=== PATIENT | female | born 1955 | race Caucasian/White ===

== ENCOUNTER 2023-06-28 17:45 | Emergency (ER) | payer OTHER, MEDICARE, SELFPAY ==
--- NOTE | ~2023-06-28 | CT_ITS ---
EXAMINATION: CT SOFT TISSUE NECK WITH CONTRAST CLINICAL INFORMATION: Pain. Difficulty swallowing. COMPARISON: X-rays dated 06/28/2023 TECHNIQUE: Following the intravenous administration of 60 mL of Omnipaque 350 intravenous contrast, helical imaging was performed in the axial plane with generation of coronal and sagittal reformatted images. This CT examination was performed using dose optimization techniques as appropriate, variously including the following: *Automated exposure control *Adjustment of mA and/or kV according to patient size (this includes techniques or standardized protocols for targeted exams where dose is matched to indication/reason for exam; i.e. extremities or head) *Use of iterative reconstruction technique DLP: 425 mGy-cm FINDINGS: There is mild edema in the bilateral aryepiglottic folds, particularly posteriorly. Larynx otherwise unremarkable. No cervical adenopathy is identified. The parotid glands are homogeneous in attenuation. The submandibular glands are normal. No contour abnormality or pathologic enhancement is seen within the oral cavity or pharyngeal mucosal space. The parapharyngeal fat is preserved. No extra mucosal soft tissue mass or fluid collection is seen. No retropharyngeal fluid collection is seen. The mastoid air cells and visualized portions of the paranasal sinuses are well-aerated. Unremarkable thyroid gland. Bilateral coarse carotid bulb calcifications with approximately 50% stenosis of the proximal right internal carotid artery. No hemodynamically significance stenosis on the left.. The imaged portions of the brain parenchyma are unremarkable. Small right mastoid air cell effusion. Left mastoid air cells and imaged portions of the paranasal sinuses are clear. There are nonspecific soft tissue calcifications anterior to the bilateral maxilla, likely calcified cosmetic fillers. The temporomandibular joints are normal. No periapical disease is identified. No acute or suspicious osseous abnormalities. Imaged lung apices demonstrate mild emphysema and bronchial wall thickening. Superior mediastinum unremarkable. No acute pneumonic process or suspicious pulmonary nodules. CT/CT soft tissue neck w IV con IMPRESSION: * There is mild edema in the bilateral aryepiglottic folds, compatible with laryngitis. No foreign bodies. * Incidental 50% stenosis of the proximal right internal carotid artery. * Mild emphysema and small airways disease. * Nonspecific soft tissue calcifications anterior to the bilateral maxilla, likely calcified cosmetic fillers.
--- NOTE | ~2023-06-28 | XR_ITS ---
EXAMINATION: XR SOFT TISSUE NECK CLINICAL INDICATION: Something stuck in the throat COMPARISON: None available. TECHNIQUE: 2 views of the soft tissue neck were obtained. FINDINGS: Prominent prevertebral soft tissue swelling is present anterior to C4-C6. Calcifications are present in this region that are probably related to the trachea. Degenerative changes are present in the cervical spine from C4 through C7 with disc space narrowing and osteophytes. XR/XR soft tissue neck IMPRESSION: Prominent prevertebral soft tissue swelling. CT scan of the neck with contrast is recommended for further evaluation if there is suspicion of a foreign body in the throat.
[2023-06-28 17:57] VITALS: BP 145/76; PULSE 98; RESP 20; TEMP 36.3; O2SAT 95; BMI 26.1
--- NOTE | 2023-06-28 18:00 | ED.GENADULT ---
HPI - General Adult General Chief complaint: Skin/Abscess/Foreign Body Stated complaint: foreign body in throat Time Seen by Provider: 06/28/23 23:05 Source: patient Mode of arrival: ambulatory Limitations: no limitations History of Present Illness HPI narrative: 67 yo female with PMH of HLD was eating [place] fries and roast beef sandwhich from [employer] around 430pm today when she felt pain and like something that got stuck. she has never had issues swallowing before. She notes it hurts and she is having a hard time swallowing her saliva. She has no change in voice or difficulty breathing. She tried to make herself vomit and did but it did not help MD complaint: throat pain Onset (ago): hour(s) (430pm today) Location: mouth Radiation: non-radiation Severity: moderate Quality: aching Pain Consistency: intermittent Relieving factors: none Exacerbating factors: other (swallowing) Associated symptoms: denies other symptoms Treatments prior to arrival: none Related Data Previous Rx's Medication Instructions Recorded azithromycin 250 mg tablet See Rx Instructions PO .COMPLEX #6 06/29/23 tabs prednisone 20 mg tablet 40 mg (2 x 20 mg) PO DAILY 5 days 06/29/23 #10 tabs Allergies Allergy/AdvReac Type Severity Reaction Status Date / Time No Known Allergies Allergy Verified 06/28/23 18:02 Review of Systems Review of Systems: Constitutional : No Fever, No Chills ENT/Mouth : pos swallowing difficulty, pos sore throat Eyes: No Eye Pain, No Swelling Cardiovascular : No Chest Pain, No SOB Respiratory : No Cough, No Sputum Gastrointestinal : No Nausea, No Vomiting, No Diarrhea Genitourinary : No Dysuria Musculoskeletal : No Myalgias Skin : No rash Neuro : No Weakness, No Numbness, No Headache All other systems reviewed and are negative [facility] Past Medical History Attestation statement: The following information was validated with the patient. Medical History (Updated 06/29/23 @ 01:54 by Desi Oquendo DO) Hyperlipidemia Social History Social History (Updated 06/28/23 @ 23:32 by Desi Oquendo DO) Patient Tobacco Use Status: Never used Tobacco Advance Directives: No Advance Directives Information Provided: No Physical Exam ED Vital Signs: Vital Signs - 24 hr 06/28/23 17:57 06/29/23 00:00 Temperature 97.4 F 97.8 F Pulse Rate 98 75 Respiratory Rate 20 16 Blood Pressure 145/76 H 101/58 L Pulse Oximetry 95 97 Oxygen Delivery Method Room Air Room Air BMI result Body Mass Index 26.1 Appearance: Alert. Oriented X3. No acute distress. Eyes: Pupils equal, round and reactive to light. ENT: Pharynx normal. Neck: Normal inspection. Neck supple. nprmal ROM CVS: Normal heart rate and rhythm. Pulses normal. Respiratory: No respiratory distress. Breath sounds normal. Abdomen: Soft and nontender. Skin: Skin warm and dry. Normal skin color. Normal skin turgor. Extremities: No lower extremity edema. Neuro: Oriented X 3. No motor deficit. No sensory deficit. Course Course Course Narrative: This is an RME: Additional HPI, ROS, PE not included below will be deferred to primary provider. This is a [id number]-female, with no known medical problems, presenting to the ER with complaints of ?foreign body in throat. patient states that she was eating Citizen Of [place] fries+ and roast beef and felt as though 1 of these was stuck. She is able to drink landen lucio without any difficulty. Plan: further ER evaluation needed Medications Administered Discontinued Medications Generic Name Dose Route Start Last Admin Trade Name Freq PRN Reason Stop Dose Admin Iohexol 60 ml 06/29/23 01:02 06/29/23 01:02 Iohexol 350 Mg/Ml 100 Ml Infus..Btl IV 06/29/23 01:03 60 ml ONCE ONE Administration Methylprednisolone Sodium Succinate 60 mg 06/29/23 01:58 06/29/23 02:03 Methylprednisolone Sod Succ 125 Mg/2 Ml Vial IVPUSH 06/29/23 01:59 60 mg ONCE ONE Administration Medical Decision Making Medical Decision Making [facility] Narrative: 67 yo female with PMH of HLD here with abrupt onset of throat pain and difficulty swallowing after eating at [employer] today. No issues with this in the past. She notes symptoms still persist 7 hours later. Her xray from triage is abnormal - she denies smoking, preceding infectious symptoms. Will obtain labs and CT scan for mass/FB. Differential Diagnosis Differential Diagnoses: The differential diagnosis associated with the presentation includes mass/FB. Admission/Observation Consideration of admission/observation: Escalation of care including admission/observation considered not toxic, stable for DC Lab Data [facility] Lab Attestation statement: I reviewed the patient's lab results. 06/28/23 23:26 06/28/23 23:26 Labs: Lab Results 06/28/23 Range/Units 23:26 WBC 7.9 (4.8-10.8) X10*3/uL RBC 4.18 L (4.20-5.50) X10*6/uL Hgb 12.9 (12.0-16.0) g/dl Hct 38.7 (37.0-47.0) % MCV 92.6 (80.0-98.0) fL MCH 30.9 (27.0-33.0) pg MCHC 33.3 (31.0-35.0) g/dl RDW 12.5 (11.0-16.0) % Plt Count 316 (160-400) X10*3/uL MPV 9.4 (9.4-12.3) fL Immature Gran % (Auto) 0.3 (0.0-0.4) % Neut % (Auto) 55.0 (45-73) % Lymph % (Auto) 29.7 (20-40) % [place] % (Auto) 11.0 (2-11) % Eos % (Auto) 3.5 (0-4) % Baso % (Auto) 0.5 (0-2) % Lymph # (Auto) 2.3 (1.2-4.9) X10*3/uL [place] # (Auto) 0.9 (0.1-1.2) X10*3/uL Eos # (Auto) 0.3 (0.0-0.4) X10*3/uL Baso # (Auto) 0.0 (0.0-0.2) X10*3/uL Abs Immat Gran (auto) 0.02 (0.00-0.03) X10*3/uL Absolute Neuts (auto) 4.3 (2.0-8.3) x10*3/uL Absolute Nucleated RBC 0.000 (0.0-0.012) X10*3/uL Nucleated RBC % (auto) 0.0 (0.0-0.2) /100WBC PT 10.9 L (11.1-13.3) SEC INR 0.9 (0.9-1.1) Sodium 139 (135-145) mmol/L Potassium 3.6 (3.3-5.1) mmol/L Chloride 103 (96-108) mmol/L Carbon Dioxide 27 (22-29) mmol/L Anion Gap 13 (12-20) BUN 18 H (9-16) mg/dL Creatinine 0.96 (0.5-1.4) mg/dL Estim Creat Clear Calc 54.9 Estimated GFR 58 Random Glucose 96 (60-115) mg/dL Calcium 9.4 (8.4-10.2) mg/dL Independent Interpretation I performed an independent interpretation of an: CT Scan (laryngitis no FB) Radiology Impression Discussion of test interpretation with radiology: I have reviewed the radiologist's reading. Prescription Management I considered prescription management with: Antibiotic and Other Discharge Plan Discharge Clinical Impression: Laryngitis Patient Disposition: Home, Self-Care Instructions: Laryngitis (ED) Additional Instructions: return for worsening pain, swelling or any other concerns. CT scan show no FB CT/CT soft tissue neck w IV con IMPRESSION: * There is mild edema in the bilateral aryepiglottic folds, compatible with laryngitis. No foreign bodies. * Incidental 50% stenosis of the proximal right internal carotid artery. * Mild emphysema and small airways disease. * Nonspecific soft tissue calcifications anterior to the bilateral maxilla, likely calcified cosmetic fillers. Prescriptions: New azithromycin 250 mg tablet See Rx Instructions .ROUTE .COMPLEX Qty: 6 0RF Rx Instructions: For 250 mg dose pack: take 500 mg today (day 1), then 250 mg for 4 days (days 2-5) prednisone 20 mg tablet 40 mg PO DAILY 5 Days Qty: 10 0RF Referrals: Jose Alfredo Kiser MD [Physician] - (call to schedule appointment given carotid stenosis) Stand Alone Forms: Work/School Release Interventions: ED Discharge Assessment Last Done: 06/29/23 02:06 Discharge Date/Time: 06/29/23 02:12
[2023-06-28 23:31] LABS: Basophils Percent Auto 0.5 % (0-2); Eosinophils Absolute Auto 0.3 X10*3/uL (0.0-0.4); Eosinophils Percent Auto 3.5 % (0-4); Hematocrit 38.7 % (37.0-47.0); Hemoglobin 12.9 g/dl (12.0-16.0); Imm Gran Abs Auto 0.02 X10*3/uL (0.00-0.03); Imm Gran Pct Auto 0.3 % (0.0-0.4); Lymphocytes Absolute Auto 2.3 X10*3/uL (1.2-4.9); Lymphocytes Percent Auto 29.7 % (20-40); MANUAL DIFF FLAG NO; Mean Corpuscular HGB Conc 33.3 g/dl (31.0-35.0); Mean Corpuscular Hemoglobin 30.9 pg (27.0-33.0); Mean Corpuscular Volume 92.6 fL (80.0-98.0); Mean Platelet Volume 9.4 fL (9.4-12.3); Monocytes Absolute Auto 0.9 X10*3/uL (0.1-1.2); Neutrophils Absolute Auto 4.3 x10*3/uL (2.0-8.3); Platelet Count 316 X10*3/uL (160-400); Red Blood Count 4.18 X10*6/uL (4.20-5.50); Red Cell Distribution Width 12.5 % (11.0-16.0); White Blood Count 7.9 X10*3/uL (4.8-10.8)
[2023-06-28 23:36] LABS: INTERNATIONAL NORM RATIO 0.9 (0.9-1.1); Prothrombin Time 10.9 SEC (11.1-13.3)
[2023-06-28 23:43] LABS: Anion Gap 13 (12-20); Blood Urea Nitrogen 18 mg/dL (9-16); Calcium 9.4 mg/dL (8.4-10.2); Carbon Dioxide 27 mmol/L (22-29); Chloride 103 mmol/L (96-108); Creatinine Clr Calc Pharmacy 54.9; Estimated Glomerular Filt Rate 58; Glucose Random 96 mg/dL (60-115); Potassium 3.6 mmol/L (3.3-5.1); Sodium 139 mmol/L (135-145)
[2023-06-29] VITALS: BP 101/58; PULSE 75; RESP 16; TEMP 36.6; O2SAT 97
[2023-06-29] MEDS: iohexoL 350 MG/ML 100 ML INFUS..BTL 60 ML IV (01:02)
[2023-06-29] MEDS: methylPREDNISolone Sod Succ 125 MG/2 ML VIAL 60 MG IVPUSH (02:03)
== END 2023-06-29 02:12 | disposition home or self-care (01) ==
PROVIDERS: Emergency Provider Emergency Medicine
DX: J04.0 Acute laryngitis (principal); M54.2 Cervicalgia; R13.10 Dysphagia, unspecified; Z79.899 Other long term (current) drug therapy
CPT/HCPCS: 36415; 70360; 70491; 80048; 85025; 85610; 96374; 99284; J2930; Q9967

== ENCOUNTER 2023-09-07 08:04 | Outpatient (AMB) | payer MEDICARE, SELFPAY ==
--- NOTE | 2023-09-07 08:10 | MHC.OFFWIV ---
Intake Vital Signs 09/07/23 08:11 Height 5 ft 4 in Weight 152 lb BMI 26.1 BP 120/60 Blood Pressure Location Rt brachial Position Sitting Pulse 78 Pulse Source Pulse Oximeter Temp 98.7 F Temp Source Oral Pulse Oximetry (%) 97 Oxygen Delivery Method Room Air Intake Visit Reasons: EP sore throat hoarse masked in lobby Intake Note: pt is here for sore throat, fever sick fr 4 days Patient Tobacco Use Status: Never used Tobacco Allergies No Known Allergies Allergy (Verified 09/07/23 08:11) Do you need a note to return to daycare/school/sports/work: No HPI HPI Comments History of Present Illness Details This is a female with a past medical history of hypertension, hyperlipidemia and depression presenting for evaluation of cold symptoms that she has had for the past 1 week. Patient reports a cough, sore throat and a hoarseness to her voice. Patient states that her has been sick with similar symptoms. Patient denies having any fevers, chills, ear pain, chest pain or shortness a breath. [facility] Medical History Hyperlipidemia Social History Patient Tobacco Use Status: Never used Tobacco Review of Systems Const All systems reviewed & are unremarkable except as noted in HPI and below Reports as per HPI ENT Reports no additional complaints Card Reports no additional complaints and Denies dyspnea Resp Reports cough, Denies pain with cough, Denies dyspnea and Denies wheezing Musc Reports no additional complaints Psych Reports no additional complaints Aller/Immun Denies wheezing Physical Exam Vital Signs: Last Vital Signs Temp 98.7 F 09/07/23 08:11 Pulse 78 09/07/23 08:11 BP 120/60 09/07/23 08:11 Pulse Ox 97 09/07/23 08:11 Oxygen Delivery Method Room Air 09/07/23 08:11 BMI result Body Mass Index 26.1 Const General: cooperative, comfortable and no acute distress; No ill appearing Orientation/consciousness: patient oriented x3 Limitations: no limitations HEENT Head: Yes normal to inspection and Yes normocephalic Ears: hearing grossly normal bilaterally, external ears normal, TM's normal bilaterally and EAC's normal General nose exam: Normal external nose present and no nasal discharge noted Face and sinus: Yes normal facial exam and Yes sinuses nontender Mouth: Normal oral and palatal mucosa present and moist mucous membranes Throat: Yes posterior oropharynx normal (There is no edema, erythema or exudates in the posterior oropharynx) and Yes postnasal drainage Eyes General: appearance normal, both eyes and all related structures Neck Lymphatic: no lymphadenopathy noted Resp Effort & Inspection: normal respiratory effort, able to speak in complete sentences, no audible wheezes, no cough, no respiratory distress and no use of accessory muscles Auscultation: clear to auscultation bilaterally Cardio Rate: regular rate Rhythm: regular rhythm Neuro General: patient oriented x3 Psych Appearance: grossly normal Mental Status: mental status grossly normal Speech and movement: Normal speech and movement present Insight: Good insight present (Psych) Judgement: Good judgement present (Psych) Assessment & Plan Assessment & Plan (1) Upper respiratory infection: Comment: Patient's history coupled with her examination is consistent with a viral upper respiratory infection. No further testing or imaging is warranted at this time. Code(s): J06.9 - Acute upper respiratory infection, unspecified Plan: Mucinex OTC as needed, increase clear fluids daily and follow up with PCP in 7-10 days if symptoms persist. Coding Level of Care Code Est Pt Level 3 (94623) Diagnoses Upper respiratory infection J06.9 Time Spent (min) 20
[2023-09-07 08:11] VITALS: BP 120/60; PULSE 78; TEMP 37.1; O2SAT 97; BMI 26.1
== END 2023-09-07 09:12 | disposition home or self-care (01) ==
PROVIDERS: Visit Provider Physician Assistant
DX: J06.9 Acute upper respiratory infection, unspecified (principal); J02.9 Acute pharyngitis, unspecified
CPT/HCPCS: 87880; 99213

== ENCOUNTER 2025-04-07 10:22 | Outpatient (REF) | payer MEDICARE, OTHER, SELFPAY ==
--- NOTE | ~2025-04-07 | XR_ITS ---
CLINICAL HISTORY: R07.81 - Pleurodynia PA chest and two views of the left ribs. Comparison: None provided Findings: There are left 6th 7th and 8th rib fractures present. No definite pneumothorax. Mild interstitial prominence. Cardiac and mediastinal contours are within normal limits. Impression: Left 6th through 8th rib fractures. No definite pneumothorax. This document has been electronically signed by: Unruly Sheikh MD on 04/07/2025 11:16:20
== END 2025-04-07 10:23 | disposition home or self-care (01) ==
LOC: HO.HMGCX 10:22
PROVIDERS: PCP Internal Medicine; Visit Provider Physician Assistant
DX: R07.81 Pleurodynia (principal); S22.49XA Multiple fractures of ribs, unspecified side, initial encounter for closed fracture; W19.XXXA Unspecified fall, initial encounter
CPT/HCPCS: 71111; 99212

== ENCOUNTER 2025-04-07 10:22 | Outpatient (AMB) | payer MEDICARE, OTHER, SELFPAY ==
--- OUTSIDE RECORDS SUMMARY | 2025-04-07 10:25 | XMS_ITS | Clinical Summary ---
Author Organization [facility] Address [address] [place] [address] Care Team Providers Care Electrician Technician Name Role Phone Unavailable Primary Care Provider Unavailabl e Allergies No known active allergies Medications amLODIPine-cleopatra zepril (LOTREL 5-10) 5-10 MG per capsule Take 1 capsule by mouth daily. 0 01/27/2016 Active FLUoxetine (PROzac) 20 MG tablet Take 40 mg by mouth daily. 5 01/09/2016 Active pravastatin (PRAVACHOL) 80 MG tablet Take 80 mg by mouth daily. 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 Immunizations Immunization Administration Dates Next Due Hep B, Adolescent or Pediatric 11/14/2009 Hepatitis B 04/16/2010,10/16/2009 TD Preservative Free 08/01/2008 Social History Tobacco Use Types Packs/Day Years Used Date Smoking Tobacco: Never Assessed Comments Unknown Sex and Gender Information Value Date Recorded Sex Assigned at Not on file Legal Sex Female 6:41 PM EDT Gender Identity Not on file Sexual Orientation Not on file Last Filed Vital Signs Vital Sign Reading Time Taken Comments Blood Pressure 128/84 02/14/2016 8:16 AM EDT Pulse 72 02/14/2016 8:16 AM EDT Temperature - - Respiratory Rate 16 02/14/2016 8:16 AM EDT Oxygen Saturation - - Inhaled Oxygen Concentration - - Weight 71.2 kg (157 lb) 02/14/2016 8:16 AM EDT Height 162.6 cm (5' 4 ) 02/14/2016 8:16 AM EDT Body Mass Index 26.95 02/14/2016 8:16 AM EDT Plan of Treatment Health Maintenance Due Date Last Done Comments Advance Care Planning 1955 Hepatitis C Virus Screening 1955 Mammogram 1996 Colonoscopy 2001 Pneumococcal Vaccines 50+ (1 of 1 - PCV) 2006 Zoster (Shingles) Vaccine (1 of 2) 2006 DTaP/Tdap/Td Vaccines (1 - Tdap) 08/02/2008 08/01/19 09 Hepatitis B Vaccines (3 of 3 - 19+ 3-dose series) 06/11/2010 04/16/2010, 11/14/2009, 10/16/2009 DXA Bone Density (Females,Ag es 65 and older) 2021 Influenza Vaccine 02/09/2025 COVID-19 Vaccine ( - season) 2025 RSV Vaccine 60 years and old er and Patients (1 - 1-dose 75+ series) 11/14/2031 Insurance [employer] * Guarantor: MALKA CARROLL Account Type Relation to Patient Date of Phone Billing Address [facility] Employer
--- OUTSIDE RECORDS SUMMARY | 2025-04-07 10:25 | XMS_ITS | Encounter Summary ---
Author Organization [facility] Address [address] [place] [id number] Care Team Providers Care Quality Assurance Specialist Name Role Phone Chloe Garcia MD Primary Care Provider [phone] Encounter Details Date Type Department Care Team (Late st Contact Info) Description 02/14/2015 Scanned Document [address] [phone] Provider, Generic Social History Tobacco Use Types Packs/Day Years Used Date Smoking Tobacco: Never Assessed Comments Unknown Sex and Gender Information Value Date Recorded Sex Assigned at Not on file Legal Sex Female 6:41 PM EDT Gender Identity Not on file Sexual Orientation Not on file documented as of this encounter Plan of Treatment Not on file documented as of this encounter Procedures Procedure Name Priority Date/Time Associated Diagnosis Comments LAB RESULT 02/14/2015 documented in this encounter Results * LAB RESULT (02/14/2015) Narrative 02/14/2015 Ordered by an unspecified provider. us Generic Provider HX AMB PROCEDURES Final Result documented in this encounter Visit Diagnoses Not on filedocumented in this encounter Care Teams Quality Assurance Specialist Relationship Specialty Start Date End Date Chloe Garcia MD PCP - General Internal Medicine 02/14/15 10/22/20 documented as of this encounter
--- NOTE | 2025-04-07 10:26 | MHC.OFFWIV ---
Intake Vital Signs 04/07/25 10:27 Height 5 ft 4 in BMI Reason not done Patient refused/unable BP 156/88 H Blood Pressure Location Lt brachial Position Sitting Pulse 77 Pulse Source Pulse Oximeter Pulse Oximetry (%) 98 Intake Visit Reasons: EP Left side rib pain from fall Patient Tobacco Use Status: Never used Tobacco Allergies No Known Allergies Allergy (Verified 04/07/25 10:27) Do you need a note to return to daycare/school/sports/work: No HPI HPI Comments History of Present Illness Details This is a 61-year-old female past medical history significant for hypertension, hyperlipidemia, anxiety/depression presenting to the clinic with complaints of left-sided rib pain. Patient reports a little bit over a week ago she was standing on the the rim of her truck, she went to put something in the truck bed, she fell forward, landing on her left rib. No head strike no loss of consciousness. Since then she has been having left-sided rib pain worse with palpation, breathing, sneezing, coughing. She reports she feels like she can not take a deep breath. Pain is not improving on its own. Denies chest pain, nausea, vomiting, abdominal pain, headache, vision changes, dizziness and weakness. Physical examination with tenderness to palpation overlying left lateral ribs vital signs are stable. Saturating well on room air. History and physical exam concerning for rib fractures versus contusion. Unlikely pneumothorax unlikely issues to underlying structures. Plan will take a look at the x-ray of chest/ribs. 1054 I did review patient's x-rays it appears as though she has 2 possibly 3 broken ribs. This happened greater than 7 days ago. Will send Lidoderm patches, meloxicam. An incentive spirometer. Will have her follow up with PCP and go to the ED with any new or worsening symptoms [facility] Medical History Hyperlipidemia Social History Patient Tobacco Use Status: Never used Tobacco Physical Exam Exam Exam: Appearance: Alert.? Oriented X3.? No acute distress.? Head: Normocephalic, atraumatic, no step-offs or deformities Eyes: Pupils equal, round and reactive to light.? ENT: Pharynx normal.? Neck: Normal inspection.? Neck supple.? CVS: Normal heart rate and rhythm.? Pulses normal.? Respiratory: No respiratory distress.? Breath sounds normal.? Abdomen: Soft and nontender.? Skin: Skin warm and dry.? Normal skin color.? Normal skin turgor.? Extremities: No lower extremity edema.? No calf ttp. 5/5 strength to bilateral upper and lower extremities + TTP to left lateral ribs. No paradoxical breathing. Back: No midline tenderness, no C-spine tenderness, full range of motion, no CVA tenderness bilaterally Neuro: Oriented X 3.? No motor deficit.? No sensory deficit. CN 2-12 intact Vital Signs: Last Vital Signs Pulse 77 04/07/25 10:27 BP 156/88 H 04/07/25 10:27 Pulse Ox 98 04/07/25 10:27 vss Assessment & Plan Assessment & Plan (1) Rib pain on left side: Code(s): R07.81 - Pleurodynia (2) Fall: Code(s): W19.XXXA - Unspecified fall, initial encounter (3) Rib fractures: Code(s): S22.49XA - Multiple fractures of ribs, unspecified side, initial encounter for closed fracture Plan Take your medications as prescribed. If you were prescribed antibiotics today, it is important that you take your medication to their entirety, do not skip any doses, do not finish them early. Follow-up with your primary care provider this week. Return to the emergency department with new or worsening symptoms. Such as fevers, chills, chest pain, shortness of breath, nausea, vomiting, dizziness, headache, vision changes, lethargy In case of emergency call 911 Please use your incentive spirometer as instructed. 3-4 times every 2 hours Orders: Orders XR ribs BI min 4V w CXR1V Today R07.81 - Pleurodynia Medications: New meloxicam 15 mg PO DAILY 30 tabs 0RF pain lidocaine 4% (AsperFlex (lidocaine)) 1 patch topical DAILY PRN 15 ea 0RF pain Coding Level of Care Code Est Pt Level 4 (50598) Diagnoses Rib pain on left side R07.81 Fall W19.XXXA Rib fractures S22.49XA
[2025-04-07 10:27] VITALS: BP 156/88; PULSE 77; O2SAT 98
== END 2025-04-07 11:35 | disposition home or self-care (01) ==
PROVIDERS: Visit Provider Physician Assistant
DX: R07.81 Pleurodynia (principal); W19.XXXA Unspecified fall, initial encounter; S22.49XA Multiple fractures of ribs, unspecified side, initial encounter for closed fracture

== ENCOUNTER → 2025-04-07 10:41 | Outpatient (BNV) | payer MEDICARE, OTHER, SELFPAY | PROVIDERS: PCP Internal Medicine; Visit Provider Radiology Vascular & Interventional Radiology | DX: S22.42XA Multiple fractures of ribs, left side, initial encounter for closed fracture (principal) | CPT/HCPCS: 71111 ==